=== PATIENT | female | born 1985 | race American Indian/Alaskan Native ===

== ENCOUNTER 2019-12-23 09:14 | Emergency (ER) | payer SELFPAY ==
[2019-12-23 09:24] VITALS: BP 162/94
--- NOTE | 2019-12-23 09:53 | Emergency Department Report ---
Vomiting/Diarrhea - HPI Chief Complaint: Nausea/Vomiting/Diarrhea Stated Complaint: VOMITTING, STOMACH PAIN Time Seen by Provider: 12/23/19 09:39 Duration: 1 Day Nausea/Vomiting Severity: Severe Diarrhea Severity: Mild Symptoms: Yes Watery Diarrhea, Yes Recent Unusual Foods, No Fever, No Able to Tolerate Fluids, No Recent Untreated Water, No Recent use of Antibiotics, No Family w/ Similar Symptoms, No Contacts w/ Similar Symptoms, No Rash, No Hematuria, No Recent URI Symptoms Other History: 34-year-old -Citizen Of [place] female presents to the emergency room complaining of vomiting and diarrhea for the last 24 hours. Patient states that she believes she ate some food that have upset her stomach. Patient states she has tried Dramamine for the nausea. She reports that she has had 4 loose stools. Patient states that she has filled up a quart of a bag of vomited since being here. Patient admits to nausea. Patient reports not able to hold any food down but is hungry. Patient's last menstrual period was last month which she reports are normal and no possibility of being . Patient denies any past medical history currently takes no medications on a daily basis and has no known drug allergies. ED Review of Systems ROS: Stated complaint: VOMITTING, STOMACH PAIN Other details as noted in HPI Comment: All other systems reviewed and negative Eyes: denies: eye pain, eye discharge, vision change ENT: denies: ear pain, throat pain Respiratory: denies: cough, shortness of breath, wheezing Cardiovascular: denies: chest pain, palpitations Endocrine: no symptoms reported Gastrointestinal: nausea, vomiting, diarrhea. denies: abdominal pain ED Past Medical Hx - Past Medical History Previous Medical History?: No - Surgical History Past Surgical History?: No - Social History Smoking Status: Never Smoker Substance Use Type: None - Medications Home Medications: Home Medications Medication Instructions Recorded Confirmed Last Taken Type Ondansetron [Zofran Odt] 4 mg PO Q8HR #6 tab.wendydis 12/23/19 Unknown Rx Vomiting Diarrhea Exam - Exam General: Vital signs noted. No distress. Alert and acting appropriately. Neck: No Adenopathy, No Rigidity Lungs: Yes Clear Lung Sounds, Yes Good Air Exchange, No Wheezes, No Stridor, No Cough, No Nasal Flaring, No Retractions, No Use of Accessory Muscles Heart exam: Regular: Yes, Murmur: No, Tachycardia: No Abdomen: Tenderness: No, Peritoneal Signs: No, Distention: No, Hyperactive Bowel sounds: No Skin exam: Rash: No, Edema: No, Normal turgor: Yes Neurologic: Alert and oriented, no deficits. Musculoskeletal: Unremarkable. ED Course Vital Signs 12/23/19 09:19 Temperature 98 F Pulse Rate 84 Respiratory 16 Rate Blood Pressure 162/94 O2 Sat by Pulse 100 Oximetry - Reevaluation(s) Reevaluation #1: 12/23/19 12:38 Patient reports that she feels much better after having IV fluids and Zofran. Patient reports that she is ready to leave. ED Medical Decision Making - Medical Decision Making 34-year-old -Citizen Of [place] female presents to the emergency room complaining of vomiting and diarrhea for the last 24 hours. Patient states that she believes she ate some food that have upset her stomach. Patient states she has tried Dramamine for the nausea. She reports that she has had 4 loose stools. Patient states that she has filled up a quart of a bag of vomited since being here. Patient admits to nausea. Patient reports not able to hold any food down but is hungry. Patient's last menstrual period was last month which she reports are normal and no possibility of being . Patient denies any past medical history currently takes no medications on a daily basis and has no known drug allergies. UA hCG, IV normal saline, Zofran 4 mg IV. Critical care attestation.: If time is entered above; I have spent that time in minutes in the direct care of this critically ill patient, excluding procedure time. ED Disposition Clinical Impression: Gastroenteritis Disposition: DC-01 TO HOME OR SELFCARE Is pt being admited?: No Does the pt Need Aspirin: No Condition: Stable Instructions: Gastroenteritis (ED) Additional Instructions: Take Zofran as needed for nausea and vomiting. Increase your fluid intake advance your diet as tolerated. Follow-up with your primary care provider. Prescriptions: Ondansetron [Zofran Odt] 4 mg PO Q8HR #6 tab.rapdis Referrals: PRIMARY CARE, [Primary Care Provider] - 3-[address] [facility] [Provider Group] - 3-5 Days Forms: Work/School Release Form(ED)
[2019-12-23] MEDS ORDERED: SODIUM CHLORIDE 0.9% 1000 ML 1,000 ML IV ONE (09:56)
[2019-12-23] MEDS ORDERED: ONDANSETRON 4 MG/2 ML INJ IV ONE ×2 (09:56→13:02)
== END 2019-12-23 13:13 | disposition home or self-care (01) ==
LOC: ED 09:14
DX: K52.9 Noninfective gastroenteritis and colitis, unspecified (principal); R11.2 Nausea with vomiting, unspecified; Z79.899 Other long term (current) drug therapy
CPT/HCPCS: 96361; 96374; 96376; 99282; J2405; J7030